=== PATIENT | male | born 1960 | race Caucasian/White ===

== ENCOUNTER → 2018-11-11 | Outpatient (CLI) | payer OTHER ==
--- NOTE | 2018-11-11 14:41 | PCVCIMAG ---
APPROVED REPORT Indications Bruit Risk Factors Hypertension: Hyperlipidemia Diabetes, CAD Doppler Spectral Velocity Analysis PSV / EDVPSV / EDV ECA (R) 82 / 10 cm/sECA (L) 93 / 10 cm/s dICA (R) 78 / 29 cm/sdICA (L) 58 / 19 cm/s Chapis (R) 82 / 29 cm/smICA (L) 67 / 23 cm/s pICA (R) 82 / 31 cm/spICA (L) 62 / 15 cm/s Bulb (R) 48 / 16 cm/sBulb (L) 64 / 15 cm/s dCCA (R) 53 / 13 cm/sdCCA (L) 83 / 20 cm/s mCCA (R) 68 / 14 cm/smCCA (L) 72 / 14 cm/s Vert (R) 49 / 15 cm/sVert (L) 50 / 13 cm/s ICA/CCA 0.81 ICA/CCA 1.21 Basic Measurements Blood Pressure: Pulses: Right Left RightLeft Brachial(Sitting) 158/26dlDu033/80mmHgTemporal Real Time B-Mode Imaging Vert. (R)AntegradeVert. (L)Antegrade Findings The right carotid bulb has moderate calcified plaque. The right proximal internal carotid artery shows <40% stenosis. The right common carotid artery shows no significant stenosis. The right external carotid artery shows no significant stenosis. The left carotid bulb has moderate calcified plaque. The left proximal internal carotid artery shows <40% stenosis. The left common carotid artery shows no significant stenosis. The left external carotid artery shows no significant stenosis. Conclusion 1. Right internal carotid artery stenosis (<40%) 2. Left internal carotid artery stenosis (<40%) 3. Antegrade vertebral flow
--- NOTE | 2018-11-18 15:32 | PCVCIMAG ---
APPROVED REPORT Study performed: 11/11/2018 15:00:10 Exam: Stress Echocardiogram Indication: CAD s/p CABG, Hyperlipidemia, Hypertension Patient Location: Echo lab Stress Nurse: Kim Regalado RN Room #: 2 Status: routine Ht: 5 ft 6 in HR: 96 bpm BP: 142/84 mmHg Rhythm: NSR Medical History Medical History: CAD s/p CABG,stents,, HTN, Diabetes, Hyperlipidemia Cardiac Risk Factors: HTN, Hyperlipidemia, DM, FHX of CAD Previous Cardiac Procedures: CABG,PCI Pretest Chest Pain Characteristics: No chest pain Exercise History: Indeterminate Procedure The patient underwent an Exercise Stress Test using the Manoj Protocol. Blood pressure, heart rate, and EKG were monitored. An Echocardiogram was performed by carpet cleaning technician in four stages in quad fashion. At peak stress, four selected images were obtained and placed side by side with resting images for comparison. Stress Test Details Stress Test: Exercise stress testing was performed using a Manoj protocol. HR Resting HR: 96 bpmMax Heart Rate (APMHR): 139 bpm Max HR Achieved: 169 bpmTarget HR (85% APMHR): 118 bpm % of APMHR: 121 Recovery HR: 114 bpm HR response to stress: Normal HR response to stress BP Resting BP: 142/84 mmHg Max BP: 192/82 mmHg Recovery BP: 142/68 mmHg BP response to stress: Normal blood pressure response to stress. ECG Resting ECG: Sinus Rhythm Stress ECG: Sinus Rhythm ST Change: Non-ischemic Arrhythmia: Occasional PVCs Recovery ECG: Sinus Rhythm Recovery ST Change: Non-ischemic Recovery Arrhythmia: Rare PVC Clinical Reason for Termination: Maximal effort Stress Symptoms: Fatigue Exercise duration: 6 min 55 sec Highest Stage Achieved: Stage 3: 3.4 mph at 14% grade. Exercise capacity: 9.7 METs Overall Exercise Capacity for Age: Average Scale: Sedentary Angina Score: None No complications. Stress ECG Conclusion The patient exercised according to the MANOJ protocol for 6:55 mins; achieving a work level of 9.7 METS. The resting heart rate of 96 bpm chaitanya to a maximum heart rate of 169 bpm. This value represent 105% of the maximal, age-predicted heart rate. The resting blood pressure of 142/84 mmHg, chaitanya to a maximum blood pressure of 192/82 mmHg. The exercise test was stopped due to fatigue . Pre-Stress Echo The resting Echocardiogram showed low normal left ventricular contractility with an estimated Ejection Fraction of about 50-55%. The resting Echocardiogram demonstrated wall motion abnormality in the septum consistent with the changes seen with bypass surgery . Normal wall motion in all segments on baseline images. Post-Stress Echo The stress Echocardiogram showed normal left ventricular contractility with an estimated Ejection Fraction of about 60-65%. Normal augmentation of wall motion in all segments on post stress images. Clinical No clinical or ECG evidence for ischemia. Conclusion Clinical Response: Non-ischemic Exercise Capacity: Average Stress ECG Response: Non-ischemic Stress Echo Images: Non-ischemic No clinical, EKG or echocardiographic evidence for ischemia. No echocardiographic evidence for exercise induced ischemia. Normal stress echocardiogram with maximal exercise stress. <Conclusion> No clinical, EKG or echocardiographic evidence for ischemia. No echocardiographic evidence for exercise induced ischemia. Normal stress echocardiogram with maximal exercise stress.
== END | disposition home or self-care (01) ==
LOC: EDBD → EDSEX → PCVCIMAG 14:15
PROVIDERS: ATTEND Internal Medicine Cardiovascular Disease
DX: I65.23 Occlusion and stenosis of bilateral carotid arteries (principal); I25.10 Atherosclerotic heart disease of native coronary artery without angina pectoris; I10 Essential (primary) hypertension; E78.5 Hyperlipidemia, unspecified; R09.89 Other specified symptoms and signs involving the circulatory and respiratory systems; E78.1 Pure hyperglyceridemia; E11.9 Type 2 diabetes mellitus without complications; Z95.1 Presence of aortocoronary bypass graft
CPT/HCPCS: 93325; 93351; 93880